=== PATIENT | male | born 1965 | race Caucasian/White ===

== ENCOUNTER 2020-04-29 08:00 | Outpatient (CLI) | payer OTHER | END 2020-04-29 18:00 | disposition home or self-care (01) | LOC: PPH VACUNA 08:00 | DX: Z23 Encounter for immunization (principal) ==

== ENCOUNTER → 2021-01-30 | Outpatient (CLI) | payer OTHER | END | disposition home or self-care (01) | LOC: PPH VACUNA 08:30 | PROVIDERS: ATTEND Emergency Medicine Pediatric Emergency Medicine | DX: Z23 Encounter for immunization (principal) ==

== ENCOUNTER 2021-08-27 08:00 | Outpatient (CLI) | payer OTHER | END 2021-08-27 08:30 | disposition home or self-care (01) | LOC: PPH VACUNA 08:00 | PROVIDERS: ATTEND Emergency Medicine Pediatric Emergency Medicine | DX: Z23 Encounter for immunization (principal) ==